=== PATIENT | female | born 1975 | race Caucasian/White ===

== ENCOUNTER 2018-06-15 13:07 | Emergency (ER) | payer OTHER ==
[~2018-06-15] VITALS: Ht 162.6 cm; Wt 74.8 kg
== END 2018-06-15 17:55 | disposition home or self-care (01) ==
LOC: ER 13:07
DX: R42 Dizziness and giddiness (principal)

== ENCOUNTER 2018-10-20 20:06 | Inpatient (IN) | payer OTHER ==
[~2018-10-20] VITALS: Ht 162.6 cm; Wt 180.0 kg
--- NOTE | 2018-10-20 20:23 | NUR ---
PACIENTE ALERTA Y ORIENTADA EN CANDACE ESFERAS REFIERE DOLOR ABDOMINAL, VOMITOS X20 Y DIARREAS X5. LOS SINTOMAS COMENZARON HOY.
--- NOTE | 2018-10-20 21:21 | NUR ---
[place] ORIENT[facility] A PACIENTE SOBRE TRATAMIENTO. VICTORIA MUESTRAS DE LABORATORIO ORDENADAS. CANALIZA CON AREA DE VENOPUNCION JULIANNE DE EDEMA O ENROJECIMIENTO. SE ADMINISTRAN MEDICAMENTOS ORDEADOS. SE MANTIENE EN OBSERVACION POR CAMBIOS.
--- NOTE | 2018-10-20 23:51 | NUR ---
SE RECIBE DE TURNO ANTERIOR FEMINA DE 43 ANOS ALERTA,ORIENTADA EN CANDACE ESFERAS,DESCANSANDO EN CAMA NIVEL MAS BAJO,FRENOS,BARANDAS ELEVADAS,GILLESPIE DE IDENTIFICACION COLOCADOS POR SEGURIDAD.PACIENTE EN COMPANIA DE FAMILIAR. PACIENTE PENDIENTE A RESULTADOS DE LABORATORIOS PARA RE EVALUACION MEDICA.
--- NOTE | 2018-10-21 07:09 | NUR ---
PACIENTE ALERTA Y ORIENTADA POR CANDACE ESFERAS EN CONCEPCION CON BARANDAS ELEVADAS EN COMPANIA DE FAMILIAR. SE OBSERVA IVF'S PATENTE JULIANNE DE EDEMA Y ENROJECIMIENTO BAJANDO UN .9NSS @ 150ML/HR. PACIENTE CON BUEN PATRON RESPIRATORIO Y PIEL TIBIA AL TACTO. PENDIENTE CT ABD/PELV Y CONSULTA CON DR. MALHOTRA.
== END 2018-10-24 18:36 | disposition home or self-care (01) | DRG 392 ==
LOC: ER 20:06 → SURH 10-21 09:37 → SEC-K 10-21 09:37 → MEDI 10-21 13:45 → SEC-K 10-21 14:05 → SURH 10-21 14:23
PROVIDERS: ADMIT Internal Medicine
PROC: BW21ZZZ Computerized Tomography (CT Scan) of Abdomen and Pelvis (ICD-10-PCS; principal; 2018-10-21)
DX: A09 Infectious gastroenteritis and colitis, unspecified (principal); R42 Dizziness and giddiness

== ENCOUNTER 2019-02-10 18:22 | Emergency (ER) | payer OTHER ==
[~2019-02-10] VITALS: Ht 162.6 cm; Wt 82.6 kg
== END 2019-02-10 22:48 | disposition home or self-care (01) ==
LOC: ER 18:22
DX: K52.9 Noninfective gastroenteritis and colitis, unspecified (principal)

== ENCOUNTER 2019-07-10 17:48 | Emergency (ER) | payer OTHER ==
[~2019-07-10] VITALS: Ht 160 cm; Wt 68.0 kg
== END 2019-07-10 20:45 | disposition home or self-care (01) ==
LOC: ER 17:48
DX: K52.9 Noninfective gastroenteritis and colitis, unspecified (principal)